=== PATIENT | female | born 2000 | race Hispanic/Latino ===

== ENCOUNTER 2018-07-24 13:53 | Emergency (ER) | payer OTHER ==
[2018-07-24] MEDS ORDERED: LIDOCAINE HCL 2% VISCOUS 15 ML UDCUP ONE (14:19)
[2018-07-24] MEDS ORDERED: MAG HYDROX/AL HYDROX/SIMETH ES 30 ML SUSP UDCUP ONE (14:19)
[2018-07-24] MEDS ORDERED: ONDANSETRON ODT 4 MG TAB ONE (14:19)
[2018-07-24 14:34] LABS: BASOPHILS % (AUTO) 0.4 % (0.0-5.0); EOSINOPHILS % (AUTO) 0.2 % (0.0-8.0); HEMATOCRIT 39.6 % (36-48); LYMPHOCYTES % (AUTO) 17.7 % (21.0-51.0); MEAN CORPUSCULAR HEMOGLOBIN 30.7 pg (27.0-33.0); MEAN CORPUSCULAR HGB CONC 33.9 g/dL (32.0-36.0); MEAN CORPUSCULAR VOLUME 90.4 fL (80-100); MONOCYTES % (AUTO) 8.1 % (3.0-13.0); NEUTROPHILS % (AUTO) 73.6 % (40.0-77.0); PLATELET COUNT (AUTO) 354 K/uL (130-400); RED BLOOD CELL COUNT(AUTO) 4.37 MIL/uL (4.00-5.50); RED CELL DISTRIBUTION WIDTH 12.5 % (11.0-15.5); WHITE BLOOD COUNT (AUTO) 8.8 K/uL (4.8-10.8)
[2018-07-24 14:35] LABS: APPEARANCE,URINE Cloudy (CLEAR); BILIRUBIN,URINE Negative (NEGATIVE); COLOR,URINE Yellow (YELLOW); GLUCOSE, URINE (UA) Negative (NEGATIVE); KETONES,URINE Negative (NEGATIVE); LEUKOCYTE ESTERASE ,URINE Moderate (NEGATIVE); NITRATE,URINE Negative (NEGATIVE); OCCULT BLOOD,URINE Large (NEGATIVE); PH,URINE 5.5 (5.0-8.0); PROTEIN,URINE Trace (NEGATIVE)
[2018-07-24 14:39] LABS: HCG,QUAL RESULT NEGATIVE (NEGATIVE)
[2018-07-24 14:44] LABS: CREATININE 0.7 mg/dL (0.5-1.5); POTASSIUM 3.6 mmol/L (3.5-5.1)
[2018-07-24 14:52] LABS: ALBUMIN 3.9 g/dL (3.5-5.0); BILIRUBIN,TOTAL 0.3 mg/dL (0.2-1.0); TOTAL PROTEIN, SERUM 8.2 g/dL (6.0-8.3)
[2018-07-24 15:05] LABS: BACTERIA,URINE Few /HPF (None Seen); MUCUS,URINE Many LPF (None Seen)
== END 2018-07-24 15:36 | disposition home or self-care (01) ==
LOC: EDH 13:53
DX: N39.0 Urinary tract infection, site not specified (principal); K29.00 Acute gastritis without bleeding; Z91.041 Radiographic dye allergy status
CPT/HCPCS: 36415; 76705; 80053; 81001; 81025; 83690; 85025

== ENCOUNTER 2019-04-26 18:22 | Emergency (ER) | payer OTHER ==
[2019-04-26] MEDS ORDERED: DEXAMETHASONE SOD PHOSPHATE 10MG/ML 1ML VIAL ONE (18:43)
[2019-04-26] MEDS ORDERED: IPRATROPIUM/ALBUTEROL SULFATE 3 ML SOLUTION IH ONE (18:44)
[2019-04-26] MEDS ORDERED: ALBUTEROL SULFATE 0.083% 2.5 MG/3 ML INH IH ONE (20:04)
[2019-04-26] MEDS ORDERED: AZITHROMYCIN 250 MG TABLET PO ONE (20:13)
== END 2019-04-26 21:09 | disposition home or self-care (01) ==
LOC: EDH 18:22
DX: J18.9 Pneumonia, unspecified organism (principal); Z91.041 Radiographic dye allergy status
CPT/HCPCS: 71046; 81025; 87804 ×2; 94640 ×2; 96372; 99285; J1100

== ENCOUNTER 2020-05-06 15:46 | Emergency (ER) | payer MEDICAID | END 2020-05-06 22:58 | disposition left against medical advice (07) | LOC: EDH 15:46 | DX: O26.892 Other specified pregnancy related conditions, second trimester (principal); R05 Cough; Z3A.18 18 weeks gestation of pregnancy; Z91.041 Radiographic dye allergy status; Z53.21 Procedure and treatment not carried out due to patient leaving prior to being seen by health care provider ==